=== PATIENT | male | born 1970 | race Caucasian/White ===

== ENCOUNTER 2018-06-05 15:30 | Emergency (ER) | payer MEDICAID ==
[~2018-06-05] VITALS: Ht 185.4 cm; Wt 65.0 kg
[2018-06-05] MEDS ORDERED: HYDROmorphone 1 mg/ml syringe IV ONE (15:50)
[2018-06-05] MEDS ORDERED: ciprofloxacin 250mg tablet PO ONE (19:40)
[2018-06-05] MEDS ORDERED: HYDR-4353 PO (19:42)
[2018-06-05] MEDS ORDERED: CIPR-230 PO (19:42)
[2018-06-05 20:05] VITALS: BP 127/91
== END 2018-06-05 20:10 | disposition home or self-care (01) ==
LOC: ER 15:31
DX: N45.1 Epididymitis (principal); K40.90 Unilateral inguinal hernia, without obstruction or gangrene, not specified as recurrent; F15.90 Other stimulant use, unspecified, uncomplicated; F17.200 Nicotine dependence, unspecified, uncomplicated; Z98.890 Other specified postprocedural states
CPT/HCPCS: 74176; 76870; 96374; 99284; J1170